=== PATIENT | male | born 1975 | race Caucasian/White ===

== ENCOUNTER 2016-10-05 14:36 | Emergency (ER) | payer OTHER ==
--- NOTE | ~2016-10-05 | ER ---
PATIENT'S NAME: ELSA MACKEY [facility] AGE: 41 Y [address] ROOM: [place] [address] LOCATION: [facility] ADMIT DATE: 10/05/2016 ER/Outpatient Report DISCHARGE DATE: 10/05/2016 FAMILY PHYSICIAN: Elijah De La Fuente PA-C ATTENDING PHYSICIAN: Lenore Rome Time of Evaluation: 1500 hours. CHIEF COMPLAINT: Left lower abdominal pain. HISTORY OF PRESENT ILLNESS: The patient is a 41-year-old male from [place], [place]. The patient is in the [place] area to view [place]. The patient this morning started having left lower quadrant pain, which did radiate to his scrotum. The patient was seen in the [place] ER on and was diagnosed with a suspected left ureteral calculus. The diagnosis was made on his physical exam and previous history of a kidney stone. The patient did have a slightly elevated lipase at that time. ALLERGIES: GIVES NO MEDICINAL ALLERGIES. CURRENT MEDICATIONS: Include some Percocet for pain. MEDICAL HISTORY: History of a hiatal hernia. He has had one previous episode of a kidney stone. PAST SURGICAL HISTORY: Include right shoulder. SOCIAL HISTORY: Nonsmoker. Denies alcohol use. REVIEW OF SYSTEMS: GENERAL: No fevers or chills. HEENT: No recent headache or sore throat. RESPIRATORY: Denies shortness of breath or cough. GASTROINTESTINAL: Includes left kind of lower mid abdominal pain. Pain does radiate to his left groin area. GENITOURINARY: Denies any swelling of his testicles. No dysuria. PHYSICAL EXAMINATION: PATIENT'S NAME: ELSA MACKEY [facility] AGE: 41 Y [address] ROOM: [place], [place] [address] LOCATION: [facility] ADMIT DATE: 10/05/2016 ER/Outpatient Report DISCHARGE DATE: 10/05/2016 FAMILY PHYSICIAN: Elijah De La Fuente PA-C ATTENDING PHYSICIAN: Lenore Rome VITAL SIGNS: His blood pressure 127/78, his temperature is 98.7, his respiratory rate 18, pulse 100, O2 saturations 98%. GENERAL APPEARANCE: A well-nourished white male. HEAD: Normocephalic. EYES: PERRLA. No icterus. NOSE: Airways patent. MOUTH: Oral membranes moist. Teeth are in adequate repair. LUNGS: Breath sounds equal, present throughout. HEART: Regular rhythm. No murmur. ABDOMEN: Tenderness especially in left lower quadrant. Some mild guarding. Bowel sounds are present. GENITALIA: Normal male. LABORATORY DATA AND X-RAYS: His CMS: Calcium low at 8.4, his creatinine was elevated at 1.7. His amylase was 82; his lipase was 310, both were within normal ranges. Urine was clear. It did not show any blood. His CBC: White count 12.2, his hemoglobin 13.4, his ANC was at 9.5. CT abdomen stone protocol did show a 2 mm stone in the left ureter at the JV area. ASSESSMENT: Left ureteral stone 2 mm. PLAN AND TREATMENT: In the emergency room, he was given a liter of fluid. He was given initially 4 of morphine and 30 of Toradol. The patient's pain did improve dramatically with the pain medicine. The patient was discharged home. Recommendation to follow up with Urology in [place] or his family doctor especially if the pain does not improve or if he does not pass the stone. The patient was given a script for [place] 5/325 one or two every 4 to 6 hours if he needs it. JESSIE LYMAN FOR MD JULISA DIXON/jose /[id number] d: 10/05/162299 t: 10/14/162040, OUTPATIENT REPORT
[2016-10-05 15:28] LABS: BILIRUBIN URINE NEGATIVE (NEGATIVE); BLOOD URINE NEGATIVE /UL (NEGATIVE); COLOR URINE YELLOW (YELLOW); GLUCOSE URINE NEGATIVE (NEGATIVE); KETONE URINE NEGATIVE (NEGATIVE); LEUKOCYTES URINE NEGATIVE /UL (NEGATIVE); NITRITE URINE NEGATIVE (NEGATIVE); PROTEIN URINE NEGATIVE (NEGATIVE); SPEC GRAVITY URINE 1.025 (1.003-1.035); TURBIDITY URINE CLEAR (CLEAR); UROBILINOGEN URINE NORMAL (NORMAL)
[2016-10-05 15:29] LABS: BASOPHIL # 0.1 K/uL (0.0-0.2); BASOPHIL % 0.7 %; EOSINOPHIL % 0.2 %; HEMATOCRIT 38.4 % (37.0-53.0); HEMOGLOBIN 13.4 g/dL (12.0-17.0); IMMATURE GRANULOCYTE % 0.3 %; LYMPHOCYTE # 1.4 K/uL (0.8-4.0); LYMPHOCYTE % 11.7 %; MCH 29.9 pg (27.0-34.0); MCHC 34.9 gm/dL (32.0-36.5); MCV 85.7 fl (83.0-98.0); MONOCYTE # 1.1 K/uL (0.0-1.0); MPV 10.4 fl (9.4-12.4); NEUTROPHIL # (ANC) 9.5 K/uL (1.4-9.0); NEUTROPHIL % 78.1 %; NRBC % 0 /100WBC (0-0.00); PLATELET COUNT 271 K/uL (150-450); RBC 4.48 M/uL (4.00-6.00); RDW-CV 13.5 % (11.9-14.6); WBC 12.2 K/uL (4.0-11.0)
[2016-10-05 15:43] LABS: ALBUMIN 3.4 gm/dL (3.5-5.0); ANION GAP 12.8 (10.0-19.0); CALCIUM 8.4 mg/dL (8.5-10.5); CREATININE 1.7 mg/dL (0.6-1.3); POTASSIUM 3.8 mMol/L (3.7-5.1); TOTAL BILIRUBIN 0.5 mg/dL (0.0-1.5); TOTAL PROTEIN 7.4 g/dL (6.0-8.4)
== END 2016-10-05 17:23 | disposition disaster alternative care site (69) ==
LOC: GMED 14:36
PROVIDERS: Family Medicine
DX: N13.2 Hydronephrosis with renal and ureteral calculous obstruction (principal); Z98.890 Other specified postprocedural states; Z79.899 Other long term (current) drug therapy
CPT/HCPCS: J1885; J2270; J2405; J7030